=== PATIENT | female | born 1990 | race Hispanic/Latino ===

== ENCOUNTER 2020-09-15 17:20 | Emergency (ER) | payer OTHER ==
[~2020-09-15] VITALS: Ht 157.5 cm; Wt 86.4 kg
[2020-09-15] MEDS ORDERED: ACET1TAB37 PO (17:51)
[2020-09-15] MEDS ORDERED: ACETAMINOPHEN 500 MG TAB PO ONE (18:20)
[2020-09-15] MEDS ORDERED: CYCLOBENZAPRINE 10MG TABLET PO ONE (18:20)
[2020-09-15] MEDS ORDERED: LIDOCAINE 5% (LIDODERM) PATCH TD ONE (18:20)
[2020-09-15 19:04] LABS: BASO % 0.5 % (0.0-1.0); EOS # 0.1 10^3/uL (0.0-0.5); EOS % 1.2 % (0.0-3.0); HEMATOCRIT 44.7 % (36.0-47.0); HEMOGLOBIN 15.1 g/dl (12.0-15.5); LYMPH # 2.1 10^3/uL (1.5-5.0); LYMPH % 24.3 % (24.0-44.0); MEAN CORPUSCULAR HEMOGLOBIN 28.9 pg (27.0-33.0); MEAN CORPUSCULAR HGB CONC 33.8 g/dl (32.0-36.5); MEAN CORPUSCULAR VOLUME 85.5 fl (80.0-96.0); MONO # 0.4 10^3/uL (0.0-0.8); MONO % 4.7 % (2.0-8.0); PLATELET COUNT, AUTOMATED 253 10^3/uL (150-450); RED BLOOD COUNT 5.23 10^6/uL (4.00-5.40); WHITE BLOOD COUNT 8.7 10^3/uL (4.0-10.0)
[2020-09-15 19:35] LABS: ALBUMIN 4.2 GM/DL (3.2-5.2); ALT/SGPT 47 U/L (12-78); BILIRUBIN,DIRECT 0.2 MG/DL (0.0-0.2); BILIRUBIN,TOTAL 0.8 MG/DL (0.2-1.0); BLOOD UREA NITROGEN 8 MG/DL (7-18); CALCIUM LEVEL 9.9 MG/DL (8.5-10.1); CARBON DIOXIDE LEVEL 27 MEQ/L (21-32); CHLORIDE LEVEL 107 MEQ/L (98-107); CREATININE FOR GFR 0.59 MG/DL (0.55-1.30); GLOMERULAR FILTRATION RATE > 60.0 (>60); GLUCOSE, FASTING 121 MG/DL (70-100); LIPASE 208 U/L (73-393); POTASSIUM SERUM 3.5 MEQ/L (3.5-5.1); SODIUM LEVEL 141 MEQ/L (136-145); TOTAL PROTEIN 7.6 GM/DL (6.4-8.2)
[2020-09-15] MEDS ORDERED: ISOVUE-370 76% 100ML VIAL As Ordered ONE (20:30)
[2020-09-15] MEDS ORDERED: **NOTE PATIENT COMMENT** MISC XX SCH (21:00)
--- NOTE | 2020-09-15 21:17 | REPVR ---
PROCEDURE INFORMATION: Exam: CT Abdomen And Pelvis With Contrast Exam date and time: 09/15/2020 8:30 PM Age: 29 years old Clinical indication: Abdominal pain; Additional info: Llq and diffuse low back pain TECHNIQUE: Imaging protocol: Computed tomography of the abdomen and pelvis with contrast. Radiation optimization: All CT scans at this facility use at least one of these dose optimization techniques: automated exposure control; mA and/or kV adjustment per patient size (includes targeted exams where dose is matched to clinical indication); or iterative reconstruction. Contrast material: ISOVUE 370; Contrast volume: 100 ml; Contrast route: INTRAVENOUS (IV); COMPARISON: No relevant prior studies available. FINDINGS: Liver: There is a diffuse decrease in hepatic parenchymal density, consistent with steatosis. Gallbladder and bile ducts: There has been a cholecystectomy. Pancreas: Normal. No ductal dilation. Spleen: Normal. No splenomegaly. Adrenal glands: Normal. No mass. Kidneys and ureters: Normal. No hydronephrosis. Stomach and bowel: Unremarkable. No obstruction. No mucosal thickening. Appendix: No evidence of appendicitis. Intraperitoneal space: Unremarkable. No free air. No significant fluid collection. Vasculature: Unremarkable. No abdominal aortic aneurysm. Lymph nodes: Prominent right mesenteric lymph node measures 1.5 cm. Urinary bladder: Unremarkable as visualized. Reproductive: IUD demonstrated within the uterus. Bones/joints: Mild central spinal stenosis L4-L5. Soft tissues: Unremarkable. IMPRESSION: 1. There is a diffuse decrease in hepatic parenchymal density, consistent with steatosis. 2. There has been a cholecystectomy. 3. Prominent right mesenteric lymph node measures 1.5 cm. Electronically signed by: John Gusman On 09/15/2020 21:17:02 PM
--- NOTE | 2020-09-15 21:24 | REPVR ---
PROCEDURE INFORMATION: Exam: MR Lumbar Spine Without Contrast Exam date and time: 09/15/2020 7:24 PM Age: 29 years old Clinical indication: Pain; Lumbago with sciatica; Bilateral; Additional info: Midline lumbar pain radiating to b/l le TECHNIQUE: Imaging protocol: Multiplanar magnetic resonance images of the lumbar spine without intravenous contrast. COMPARISON: No relevant prior studies available. FINDINGS: Vertebrae: Unremarkable. Spinal cord: Normal signal. No cord compression. L1-L2: No significant disc disease. No significant spinal canal stenosis. No neural foraminal stenosis. L2-L3: No significant disc disease. No significant spinal canal stenosis. No neural foraminal stenosis. L3-L4: No significant disc disease. No significant spinal canal stenosis. No neural foraminal stenosis. L4-L5: Mild central spinal stenosis L4-L5 secondary to a bulging annulus, small central disc protrusion, and minimal bilateral facet joint arthropathy. L5-S1: Mild bilateral facet joint arthropathy L5-S1. Sacrum/coccyx: Bulging annulus and inferiorly extruded central disc protrusion extending 6 mm below the superior endplate of S1 without significant thecal sac or neural compression. Soft tissues: Unremarkable. IMPRESSION: 1. Bulging annulus and inferiorly extruded central disc protrusion extending 6 mm below the superior endplate of S1 without significant thecal sac or neural compression. 2. Mild central spinal stenosis at L4-L5 as described above including a small central disc protrusion. Electronically signed by: John Gusman On 09/15/2020 21:24:01 PM
[2020-09-15] MEDS ORDERED: KETOROLAC 30 MG/ML 1ML VIAL IV ONE (22:30)
[2020-09-15] MEDS ORDERED: methylPREDNISolone 125MG 2ML VIAL IV ONE (22:30)
[2020-09-15] MEDS ORDERED: LIDO5DIS41 TOP (22:49)
[2020-09-15] MEDS ORDERED: PRED20TA PO (22:49)
[2020-09-15 23:13] VITALS: BP 130/72
== END 2020-09-15 23:29 | disposition home or self-care (01) ==
LOC: M ED 17:20
DX: M51.37 Other intervertebral disc degeneration, lumbosacral region (principal); M51.27 Other intervertebral disc displacement, lumbosacral region; K76.0 Fatty (change of) liver, not elsewhere classified; I88.0 Nonspecific mesenteric lymphadenitis; F41.9 Anxiety disorder, unspecified; Z90.49 Acquired absence of other specified parts of digestive tract
CPT/HCPCS: 72148; 74177; 80048; 80076; 81001; 83690; 84702; 85025; 96374; 96375; 99284; J1885; J2930; Q9967